=== PATIENT | male | born 1955 | race Caucasian/White ===

== ENCOUNTER → 2020-11-26 | Outpatient (CLI) | payer MEDICARE, OTHER ==
[~2020-11-26] MED LIST: FOLIC ACID 1 MG1 MG PO; FUROSEMIDE20 MG PO; LACTULOSE10 GM/15 M PO; SYMBICORT 160-1 INHA INH; VIT B12 PO; ZOLPIDEM TARTRA10 MG PO
== END ==
LOC: HEART 5 07:30
DX: I47.1 Supraventricular tachycardia (principal); I08.8 Other rheumatic multiple valve diseases; I70.0 Atherosclerosis of aorta; R93.1 Abnormal findings on diagnostic imaging of heart and coronary circulation
CPT/HCPCS: 93306